=== PATIENT | female | born 1965 | race Caucasian/White ===

== ENCOUNTER → 2017-09-15 | Outpatient (CLI) | payer OTHER ==
[~2017-09-15] MED LIST: AZEL1POW NAE; BUPR100T8 PO; CLBPO15 TOP; DSY50 PO; FLUT0.15 NAE; KLN5X PO; LAMO100T16 PO; PANT40TA PO; PRM625 PO
--- NOTE | 2017-09-15 15:21 | DIAGNOSTIC IMAGING REPORT ---
LUMBAR SPINE 3 VIEWS CLINICAL HISTORY: Low back pain with right leg radiculopathy. COMPARISON STUDY: No previous studies for comparison. FINDINGS: There is a mild spinal curvature convex to the left. There are mild degenerative changes. No fractures or subluxations are visualized. No destructive lesions are evident. IMPRESSION: Mild degenerative change. No fractures subluxations or destructive lesions are visualized. Electronically signed by: Marco Christensen M.D. 09/15/2017 3:19 PM Dictated Date/Time: 09/15/2017 3:19 PM
== END | disposition home or self-care (01) ==
LOC: C.RAD 14:43
PROVIDERS: ATTEND Physician Assistant
DX: M47.9 Spondylosis, unspecified (principal); M54.41 Lumbago with sciatica, right side

== ENCOUNTER → 2017-09-22 | Outpatient (CLI) | payer OTHER ==
--- NOTE | 2017-09-22 08:55 | DIAGNOSTIC IMAGING REPORT ---
MRI OF THE LUMBAR SPINE WITHOUT IV CONTRAST CLINICAL HISTORY: Right-sided sciatica. Lumbago. COMPARISON STUDY: Radiographs of lumbar spine dated 09/15/2017. TECHNIQUE: MRI of lumbar spine is performed utilizing various T1 and T2-weighted sequences in the axial and sagittal planes. IV contrast was not administered for this examination. FINDINGS: Lumbar spine: Vertebral body height and alignment are maintained throughout the lumbar spine. Small anterior osteophytes are seen throughout. The transverse and spinous processes appear intact. There is no evidence of spondylolysis. No destructive bony lesion is seen. Minimal degenerative endplate edema is seen at L2-L3 and L4-L5. Intervertebral discs: Mild degenerative disc desiccation is seen throughout the upper lumbar spine. The disc spaces are preserved. Spinal cord: The visualized spinal cord is normal in morphology and signal intensity. The conus medullaris terminates at the level of L1. The nerve roots of the cauda equina are normal in morphology. L1-L2: Unremarkable. L2-L3: Unremarkable. L3-L4: There is minimal posterior disc bulge. There is no significant acquired compromise of the central canal. The disc bulge abuts the transiting bilateral L4 nerve roots. The neural foramina are patent. L4-L5: There is a posterior disc bulge eccentric to the left. In conjunction with hypertrophy of the ligamentum flavum there is mild acquired compromise of the central canal with a minimum AP diameter of 7.5 mm. There is bilateral subarticular stenosis, left greater than right. This likely abuts the exiting bilateral L4 nerve roots and the transiting left L5 nerve root. Facet arthropathy causes mild left-sided neural foraminal stenosis. There is a right-sided facet joint effusion. L5-S1: The central canal and neural foramina are patent. Sacrum: The visualized sacrum is normal in morphology and signal intensity. Soft tissues: The prevertebral and paraspinous soft tissues are normal in appearance. The partially imaged retroperitoneal structures are normal as visualized. IMPRESSION: 1. There is no disc herniation or high-grade central canal stenosis. 2. Mild lumbosacral spondylosis as above, greatest at L4-L5. See discussion for detailed level by level analysis. Dictated: 09/22/2017 8:02 AM Transcribed: 09/22/2017 8:55 AM [facility] Electronically signed by: Brock Kovacs M.D. 09/22/2017 9:14 AM Dictated Date/Time: 09/22/2017 8:02 AM
== END ==
LOC: C.MRI 07:15
PROVIDERS: ATTEND Physician Assistant
DX: M54.41 Lumbago with sciatica, right side (principal); M43.17 Spondylolisthesis, lumbosacral region